=== PATIENT | female | born 1960 ===

== ENCOUNTER 2021-02-10 01:26 | Emergency (ER) | payer OTHER ==
[~2021-02-10] VITALS: Ht 165.1 cm; Wt 106.7 kg
[~2021-02-10 01:26] MED LIST: BUTA1CAP58 PO; CLON0.1T22 PO; DIVA-59 PO; HYDR-3248 PO; LISI-170 PO; PHEN37.53 PO
--- NOTE | 2021-02-10 01:45 | NUR ---
PT BIB POV D/T RINGING IN EARS AND A SHOOTING PAIN UP FROM NECK TO EARS. PT RECIEVED ONE DOSE COVID VACCINE ON 01/31/21. PT HAS HX OF TIA. PT RESTING IN [place] AT THIS TIME, SPOUSE AT BEDSIDE, DOREEN.
[2021-02-10] MEDS ORDERED: PROCHLORPERAZINE 5 MG/ML, 2ML IVPush ONE (02:00)
[2021-02-10] MEDS ORDERED: ACETAMINOPHEN 500 MG TABLET PO ONE (02:00)
[2021-02-10] MEDS ORDERED: DIPHENHYDRAMINE 50 MG/ML, 1ML IVPush ONE (02:00)
--- NOTE | 2021-02-10 02:01 | NUR ---
REPORT FROM TOI GUTIERREZ.
[2021-02-10 02:14] LABS: BASOPHILS % (AUTO) 1 % (0-1); EOSINOPHILS % (AUTO) 2 % (1-7); LYMPHOCYTES % (AUTO) 48 % (22-44); MEAN CORPUSCULAR HGB CONC 33.5 g/dL (32.4-35.8); MEAN PLATELET VOLUME 8.4 fL (7.4-10.4); MONOCYTES % (AUTO) 6 % (2-9); NEUTROPHILS % (AUTO) 43 % (42-75); PLATELET COUNT 240 x10^3/uL (130-400); RED BLOOD COUNT 5.12 x10^6/uL (3.82-5.3); RED CELL DISTRIBUTION WIDTH 14.8 % (9.6-15.2)
[2021-02-10 02:16] LABS: MD NO
[2021-02-10 02:24] LABS: ALANINE AMINOTRANSFERASE 38 U/L (12-78); ANION GAP 6 mmol/L (5-15); CALCIUM 9.9 mg/dL (8.5-10.1); CHLORIDE 108 mmol/L (98-107); CREATININE 0.87 mg/dL (0.55-1.02)
[2021-02-10 02:26] LABS: ALKALINE PHOSPHATASE 95 U/L (45-117); BILIRUBIN,TOTAL 0.6 mg/dL (0.2-1.0); TOTAL PROTEIN 7.8 g/dL (6.4-8.2)
[2021-02-10] MEDS ORDERED: ACETAMINOPHEN 500 MG TABLET ONE (02:29)
[2021-02-10] MEDS ORDERED: DIPHENHYDRAMINE 50 MG/ML, 1ML ONE (02:29)
[2021-02-10] MEDS ORDERED: PROCHLORPERAZINE 5 MG/ML, 2ML ONE (02:29)
--- NOTE | 2021-02-10 02:59 | NUR ---
REPORT GIVEN TO NURIA
--- NOTE | 2021-02-10 03:00 | NUR ---
Report received from MATT Felder. This RN to assume care.
[2021-02-10 03:37] VITALS: BP 132/92
--- NOTE | 2021-02-10 04:02 | NUR ---
Discharge instructions given. All questions and concerns addressed. Patient ambulatory with a steady gait. Belongings with patient.
== END 2021-02-10 04:07 ==
LOC: ED 03:55
DX: M54.2 Cervicalgia (principal); H93.11 Tinnitus, right ear; I10 Essential (primary) hypertension
CPT/HCPCS: 36415; 80053; 85025; 96374; 96375; 99284; J0780; J1200